=== PATIENT | male | born 1975 | race Caucasian/White ===

== ENCOUNTER 2017-07-12 23:21 | Emergency (ER) | payer MEDICAID ==
[~2017-07-12] VITALS: Ht 170.2 cm; Wt 91.9 kg
[2017-07-12 23:23] VITALS: BP 144/91
== END 2017-07-13 00:07 | disposition home or self-care (01) ==
LOC: ED 07-13 00:01
DX: L25.9 Unspecified contact dermatitis, unspecified cause (principal)
CPT/HCPCS: 99283; J7512

== ENCOUNTER 2018-09-28 09:19 | Emergency (ER) | payer MEDICAID ==
[~2018-09-28] VITALS: Ht 172.7 cm; Wt 102.0 kg
[2018-09-28 09:38] VITALS: BP 129/79
[2018-09-28] MEDS ORDERED: BUPR150T73 PO (09:39)
--- NOTE | 2018-09-28 10:05 | NUR ---
provider in room now
[2018-09-28] MEDS ORDERED: AMPICILLIN/SULBACTAM 3 GM in SODIUM CHLORIDE 0.9% 100 ML IV ONE (10:30)
[2018-09-28] MEDS ORDERED: VANCOMYCIN PER PHARMACY IV ONE (10:30)
[2018-09-28] MEDS ORDERED: VANCOMYCIN 2,000 MG in SODIUM CHLORIDE 0.9% 500 ML IV ONE (11:00)
[2018-09-28 11:16] LABS: BASOPHILS # (AUTO) 0.04 x10^3/uL (0-0.1); BASOPHILS % (AUTO) 0 % (0-1); EOSINOPHILS # (AUTO) 0.21 x10^3/uL (0-0.4); EOSINOPHILS % (AUTO) 1 % (1-7); LYMPHOCYTES # (AUTO) 2.21 x10^3/uL (1-3.4); LYMPHOCYTES % (AUTO) 13 % (22-44); MD NO; MEAN CORPUSCULAR HEMOGLOBIN 32.6 pg (27.5-34.5); MEAN CORPUSCULAR HGB CONC 34.2 g/dL (33.2-36.2); MEAN CORPUSCULAR VOLUME 95.3 fL (81-97); MONOCYTES # (AUTO) 1.37 x10^3/uL (0.2-0.8); MONOCYTES % (AUTO) 8 % (2-9); NEUTROPHILS # (AUTO) 13.32 x10^3/uL (1.8-6.8); NEUTROPHILS % (AUTO) 78 % (42-75); PLATELET COUNT 273 x10^3/uL (130-400); RED BLOOD COUNT 5.12 x10^6/uL (4.38-5.82); RED CELL DISTRIBUTION WIDTH 13.3 % (9.4-14.8)
[2018-09-28 11:29] LABS: ALANINE AMINOTRANSFERASE 22 U/L (12-78); ALBUMIN 3.2 g/dL (3.4-5.0); ANION GAP 7 mmol/L (5-15); CALCIUM 8.6 mg/dL (8.5-10.1); CHLORIDE 110 mmol/L (98-107); CREATININE 0.75 mg/dL (0.7-1.3)
[2018-09-28] MEDS ORDERED: SODIUM CHLORIDE 0.9% 1,000ML IVBOLUS ONE (11:30)
[2018-09-28 11:31] LABS: ALKALINE PHOSPHATASE 90 U/L (45-117); BILIRUBIN,TOTAL 0.7 mg/dL (0.2-1.0); TOTAL PROTEIN 7.5 g/dL (6.4-8.2)
--- NOTE | 2018-09-28 12:44 | NUR ---
spoke with ct regarding imaging. was informed this pt is next in line.
[2018-09-28] MEDS ORDERED: LIDOCAINE-MPF 1%, 5ML ONE (13:30)
[2018-09-28] MEDS ORDERED: LIDOCAINE 1%-EPI 1:100K, 20ML INFIL ONE (13:30)
[2018-09-28] MEDS ORDERED: OMNIPAQUE 350 MG/ML, 100ML BOTTLE ONE (13:46)
== END 2018-09-28 14:50 | disposition home or self-care (01) ==
LOC: ED 13:28
DX: L03.114 Cellulitis of left upper limb (principal); F15.20 Other stimulant dependence, uncomplicated; F31.9 Bipolar disorder, unspecified; F17.200 Nicotine dependence, unspecified, uncomplicated
CPT/HCPCS: 10060; 36415; 73090; 73201; 80053; 83605; 84145; 85025; 87040; 93970; 96365; 96366; 96368; 99284; J0295; J3370; J7030; J7040; Q9967

== ENCOUNTER 2018-09-30 14:57 | Emergency (ER) | payer MEDICAID ==
[~2018-09-30] VITALS: Ht 172.7 cm; Wt 103.4 kg
[~2018-09-30 14:57] MED LIST: BUPR150T73 PO
[2018-09-30 15:05] VITALS: BP 143/95
--- NOTE | 2018-09-30 15:50 | NUR ---
wound covered with gauze and wrapped, patient tolerated well
--- NOTE | 2018-09-30 15:59 | NUR ---
Discharge instructions discussed with patient including when to return to emergency department, patient verbalizes understanding. Patient ambulates with steady gait to discharge desk in no acute distress.
== END 2018-09-30 16:01 | disposition home or self-care (01) ==
LOC: ED 15:55
DX: Z48.01 Encounter for change or removal of surgical wound dressing (principal)
CPT/HCPCS: 99283

== ENCOUNTER 2018-10-03 00:02 | Emergency (ER) | payer MEDICAID ==
[~2018-10-03] VITALS: Ht 172.7 cm; Wt 102.0 kg
[2018-10-03 00:14] VITALS: BP 132/85
== END 2018-10-03 01:01 | disposition left against medical advice (07) ==
LOC: ED 00:55
DX: Z48.00 Encounter for change or removal of nonsurgical wound dressing (principal); Z53.21 Procedure and treatment not carried out due to patient leaving prior to being seen by health care provider

== ENCOUNTER 2018-10-07 23:34 | Emergency (ER) | payer MEDICAID ==
[~2018-10-07] VITALS: Ht 172.7 cm; Wt 100.6 kg
[2018-10-07 23:36] VITALS: BP 141/101
[2018-10-07] MEDS ORDERED: SULF-169 PO (23:40)
[2018-10-07] MEDS ORDERED: CEPH-376 PO (23:40)
== END 2018-10-08 00:11 | disposition home or self-care (01) ==
LOC: ED 10-08 00:05
DX: L03.114 Cellulitis of left upper limb (principal)
CPT/HCPCS: 99281

== ENCOUNTER 2019-12-03 02:40 | Emergency (ER) | payer MEDICAID ==
[~2019-12-03] VITALS: Ht 172.7 cm; Wt 98.0 kg
[~2019-12-03 02:40] MED LIST changes: +CEPH-376 PO; +SULF-169 PO
[2019-12-03 02:44] VITALS: BP 151/92
--- NOTE | 2019-12-03 04:50 | NUR ---
Medication requested from pharmacy
[2019-12-03] MEDS ORDERED: FLUTICASONE NASAL SPRAY 16GM NAS SCH (09:00)
== END 2019-12-03 05:04 | disposition home or self-care (01) ==
LOC: ED 04:53
DX: B34.9 Viral infection, unspecified (principal); R05 Cough; R09.89 Other specified symptoms and signs involving the circulatory and respiratory systems; F17.210 Nicotine dependence, cigarettes, uncomplicated
CPT/HCPCS: 99283; 99406

== ENCOUNTER 2020-03-27 04:43 | Emergency (ER) | payer SELFPAY ==
[~2020-03-27] VITALS: Ht 170.2 cm; Wt 87.5 kg
[2020-03-27 04:46] VITALS: BP 110/87
[2020-03-27] MEDS ORDERED: SODIUM CHLORIDE FLUSH 10ML SYR IVF ONE (05:30)
[2020-03-27 05:57] LABS: BASOPHILS # (AUTO) 0.05 x10^3/uL (0-0.1); BASOPHILS % (AUTO) 1 % (0-1); EOSINOPHILS # (AUTO) 0.13 x10^3/uL (0-0.4); EOSINOPHILS % (AUTO) 2 % (1-7); LYMPHOCYTES # (AUTO) 1.93 x10^3/uL (1-3.4); LYMPHOCYTES % (AUTO) 22 % (22-44); MD NO; MEAN CORPUSCULAR HEMOGLOBIN 32.2 pg (27.5-34.5); MEAN CORPUSCULAR HGB CONC 33.9 g/dL (33.2-36.2); MEAN CORPUSCULAR VOLUME 95.2 fL (81-97); MEAN PLATELET VOLUME 8.3 fL (7.4-10.4); MONOCYTES # (AUTO) 0.81 x10^3/uL (0.2-0.8); MONOCYTES % (AUTO) 9 % (2-9); NEUTROPHILS # (AUTO) 5.83 x10^3/uL (1.8-6.8); NEUTROPHILS % (AUTO) 67 % (42-75); PLATELET COUNT 234 x10^3/uL (130-400); RED BLOOD COUNT 4.52 x10^6/uL (4.38-5.82); RED CELL DISTRIBUTION WIDTH 11.4 % (9.4-14.8)
[2020-03-27 06:10] LABS: ALANINE AMINOTRANSFERASE 38 U/L (12-78); ALBUMIN 3.9 g/dL (3.4-5.0); ANION GAP 8 mmol/L (5-15); CHLORIDE 110 mmol/L (98-107)
[2020-03-27 06:15] LABS: ALKALINE PHOSPHATASE 54 U/L (45-117); CREATININE 0.78 mg/dL (0.7-1.3); TOTAL PROTEIN 7.1 g/dL (6.4-8.2); TROPONIN I < 0.015 ng/mL (0.000-0.045)
[2020-03-27] MEDS ORDERED: MECLIZINE CHEWABLE 25 MG TAB ONE (06:18)
[2020-03-27 06:21] LABS: BILIRUBIN,TOTAL 1.1 mg/dL (0.2-1.0)
[2020-03-27] MEDS ORDERED: POTASSIUM CHLORIDE 20 MEQ TAB.ER.PRT PO ONE (06:30)
[2020-03-27] MEDS ORDERED: MECLIZINE CHEWABLE 25 MG TAB PO ONE (06:30)
== END 2020-03-27 06:35 | disposition left against medical advice (07) ==
LOC: ED 06:29
DX: R42 Dizziness and giddiness (principal); F17.200 Nicotine dependence, unspecified, uncomplicated; I45.10 Unspecified right bundle-branch block
CPT/HCPCS: 36415; 80053; 80307; 84484; 85025; 93005; 99284

== ENCOUNTER 2020-03-30 10:36 | Emergency (ER) | payer SELFPAY ==
[~2020-03-30] VITALS: Ht 170.2 cm; Wt 87.5 kg
[2020-03-30 10:41] VITALS: BP 121/88
== END 2020-03-30 11:30 | disposition home or self-care (01) ==
LOC: ED 11:19
DX: R42 Dizziness and giddiness (principal); R00.0 Tachycardia, unspecified
CPT/HCPCS: 93005; 99283